=== PATIENT | male | born 1945 | race Caucasian/White ===

== ENCOUNTER 2019-11-07 09:00 | Outpatient (CLI) | payer MEDICARE, SELFPAY ==
[2019-11-07 10:06] LABS: Creatinine Urine 103.19 mg/dL (40-278)
[2019-11-07 10:08] LABS: Total Volume 24 Hour Urine 525 ml
[2019-11-07 10:09] LABS: Creatinine 24 Hour Urine 0.54 g/24 hr (0.95-2.49)
[2019-11-07 10:23] LABS: Alanine Aminotransferase 32 U/L (16-63); Albumin Level 3.5 g/dL (3.4-5.0); Alkaline Phosphatase 55 U/L (46-116); Anion Gap 12.3 mmol/L (7-16); Aspartate Amino Transferase 40 U/L (15-37); Bilirubin,Total 0.4 mg/dL (0.00-1.00); Blood Urea Nitrogen 30 mg/dL (7-18); Calcium 8.4 mg/dL (8.5-10.1); Carbon Dioxide 28 mmol/L (21-32); Chloride 103 mmol/L (98-108); Estimated Glomerular Filt Rate > 60; Glucose 96 mg/dL (70-99); Osmolality Calculated 294 mOsm/kg (285-295); Potassium 4.3 mmol/L (3.5-5.1); Sodium 139 mmol/L (136-145); Total Protein 6.3 g/dL (6.4-8.2)
[2019-11-10 05:58] LABS: Total Volume 525 mL; Urine Calcium 23.2 mg/dL
[2019-11-10 13:22] LABS: Parathyroid Intact 54 pg/mL (14-64)
[2019-11-11 09:23] LABS: Vitamin D 25 Hydroxy 42 ng/mL (30-100)
== END 2019-11-07 09:01 | disposition home or self-care (01) ==
PROVIDERS: Visit Provider Internal Medicine Endocrinology, Diabetes & Metabolism
DX: M81.8 Other osteoporosis without current pathological fracture (principal)
CPT/HCPCS: 36415; 80053; 81050; 82306; 82340; 82570; 83970

== ENCOUNTER 2020-02-06 08:55 | Outpatient (CLI) | payer MEDICARE, SELFPAY ==
[2020-02-06 10:06] LABS: Alanine Aminotransferase 38 U/L (16-63); Albumin Level 3.5 g/dL (3.4-5.0); Alkaline Phosphatase 49 U/L (46-116); Anion Gap 9 mmol/L (8-16); Aspartate Amino Transferase 30 U/L (15-37); Bilirubin,Total 0.4 mg/dL (0.00-1.00); Blood Urea Nitrogen 37 mg/dL (7-18); Calcium 8.5 mg/dL (8.5-10.1); Carbon Dioxide 27 mmol/L (21-32); Chloride 106 mmol/L (98-108); Estimated Glomerular Filt Rate > 60; Glucose 94 mg/dL (70-99); Osmolality Calculated 302 mOsm/kg (285-295); Potassium 4.1 mmol/L (3.5-5.1); Sodium 142 mmol/L (136-145); Total Protein 6.3 g/dL (6.4-8.2)
== END 2020-02-06 08:56 | disposition home or self-care (01) ==
LOC: CHSLAB 08:57
PROVIDERS: Visit Provider Internal Medicine Endocrinology, Diabetes & Metabolism
DX: M81.0 Age-related osteoporosis without current pathological fracture (principal)
CPT/HCPCS: 36415; 80053

== ENCOUNTER 2020-08-16 08:58 | Outpatient (CLI) | payer MEDICARE, SELFPAY ==
[2020-08-16 10:09] LABS: Alanine Aminotransferase 54 U/L (16-63); Albumin Level 3.4 g/dL (3.4-5.0); Alkaline Phosphatase 56 U/L (46-116); Anion Gap 6 mmol/L (8-16); Aspartate Amino Transferase 44 U/L (15-37); Bilirubin,Total 0.7 mg/dL (0.00-1.00); Blood Urea Nitrogen 37 mg/dL (7-18); Carbon Dioxide 30 mmol/L (21-32); Chloride 104 mmol/L (98-108); Estimated Glomerular Filt Rate > 60; Glucose 93 mg/dL (70-99); Osmolality Calculated 298 mOsm/kg (285-295); Potassium 4.3 mmol/L (3.5-5.1); Sodium 140 mmol/L (136-145)
[2020-08-16 10:14] LABS: Calcium 8.7 mg/dL (8.5-10.1)
[2020-08-16 11:15] LABS: Cholesterol 198 mg/dL (0-200); Free T4 Free Thyroxine 1.12 ng/dL (0.76-1.46); HDL Direct 111 mg/dL (40-60); LDL Cholesterol Calculated 80 mg/dL (<130); Phosphorus 3.5 mg/dL (2.6-4.7); Thyroid Stimulating Hormone 0.58 uIU/mL (0.36-3.74); Triglycerides 33 mg/dL (0-150)
[2020-08-19 04:13] LABS: Vitamin D 25 Hydroxy 41 ng/mL (30-100)
[2020-08-19 12:04] LABS: Parathyroid Intact 56 pg/mL (14-64)
== END 2020-08-16 08:59 | disposition home or self-care (01) ==
LOC: CHSLAB 09:03
PROVIDERS: Visit Provider Internal Medicine Endocrinology, Diabetes & Metabolism
DX: M81.0 Age-related osteoporosis without current pathological fracture (principal); Z13.6 Encounter for screening for cardiovascular disorders
CPT/HCPCS: 36415; 80053; 80061; 82306; 83970; 84100; 84439; 84443

== ENCOUNTER 2020-10-09 10:47 | Outpatient (CLI) | payer MEDICARE, BC, SELFPAY ==
--- NOTE | ~2020-10-09 | DEXA_ITS ---
Bone Density Report Name: Trip Braswell Age: 74 Sex: Male Ethnicity: White Date of : 1945 Indication: screening for osteoporosis; parental hip fracture; height loss; prior fracture; cancer; Referring Provider: Lloyd, Stephany Ramos Study: Bone densitometry was performed. Exam Date: October 09, 2020 Accession number: [id number] Bone Density: Region BMD T-score Z-score Classification AP Spine(L1, L2, L3) 0.688 -3.5 -2.4 Osteoporosis Femoral Neck (Left) 0.474 -3.4 -2.0 Osteoporosis Total Hip (Left) 0.589 -2.9 -2.0 Osteoporosis Femoral Neck (Right) 0.566 -2.7 -1.3 Osteoporosis Total Hip (Right) 0.647 -2.6 -1.7 Osteoporosis Femoral Neck Mean 0.520 -3.0 -1.6 Osteoporosis Total Hip Mean 0.618 -2.7 -1.9 Osteoporosis World Health Organization criteria for BMD impression classify patients as: Normal (T-score at or above -1.0), Osteopenia (T-score between -1.0 and -2.5), or Osteoporosis (T-score at or below -2.5). 10-year Fracture Risk: FRAX not reported because: Some T-score for Spine Total or Hip Total or Femoral Neck at or below -2.5 Treated for osteoporosis Clinical Information Provided by Patient: Has had a low trauma fracture Parent has had a hip fracture Is being treated for osteoporosis Has used the following medications: Prolia (i.e. denosumab), Vitamin D, Calcium Has the following medical conditions: Cancer Patient maximum height was 72 No regular weight bearing exercise Drinks caffeinated beverages Impression: The patient has established osteoporosis, based on the Total Spine T-score and the existence of a prior fracture. The patient has risk factors, including: parental hip fracture, previous fracture. Discussion: It is important to ask patients whether they are taking their medications and to encourage continued and appropriate compliance with their osteoporosis therapies to reduce fracture risk. It is also important to review their risk factors and encourage appropriate calcium and vitamin D intakes, exercise, fall prevention and other lifestyle measures. Follow-Up: Consider repeating this study in 2 years to reassess this patient's status, or sooner if there is some new clinical indication. Reported by: Dr. Amos Jimenez on 10/09/2020 11:50:00 AM. Reviewed, dictated and finalized at location [facility]
[2020-10-09 11:57] LABS: Alanine Aminotransferase 48 U/L (16-63); Albumin Level 3.2 g/dL (3.4-5.0); Alkaline Phosphatase 57 U/L (46-116); Anion Gap 9 mmol/L (8-16); Aspartate Amino Transferase 37 U/L (15-37); Bilirubin,Total 0.4 mg/dL (0.00-1.00); Blood Urea Nitrogen 40 mg/dL (7-18); Calcium 8.4 mg/dL (8.5-10.1); Carbon Dioxide 29 mmol/L (21-32); Chloride 104 mmol/L (98-108); Estimated Glomerular Filt Rate > 60; Glucose 94 mg/dL (70-99); Osmolality Calculated 303 mOsm/kg (285-295); Potassium 4.3 mmol/L (3.5-5.1); Sodium 142 mmol/L (136-145); Total Protein 6.3 g/dL (6.4-8.2)
[2020-10-09 12:05] LABS: Erythrocyte Sedimentation Rate 20 mm/hr (0-20)
[2020-10-11 13:44] LABS: Vitamin D 25 Hydroxy 40 ng/mL (30-100)
[2020-10-12 04:18] LABS: Albumin 3.5 g/dL (3.8-4.8); Alpha 1 Globulin 0.3 g/dL (0.2-0.3); Alpha 2 Globulin 0.6 g/dL (0.5-0.9); Beta 1 Globulin 0.5 g/dL (0.4-0.6); Gamma Globulin 0.9 g/dL (0.8-1.7)
== END 2020-10-09 10:48 | disposition home or self-care (01) ==
PROVIDERS: Visit Provider Internal Medicine Endocrinology, Diabetes & Metabolism
DX: M81.0 Age-related osteoporosis without current pathological fracture (principal); E88.09 Other disorders of plasma-protein metabolism, not elsewhere classified
CPT/HCPCS: 36415; 77080; 80053; 82306; 84155; 84165; 85652

== ENCOUNTER 2020-10-10 10:59 | Outpatient (NON) | payer MEDICARE, SELFPAY ==
[2020-10-10 11:11] LABS: Add Urine Microscopic? YES; Appearance Urine Clear (Clear); Bilirubin Urine Negative (Negative); Blood Urine Negative (Negative); Color Urine Yellow (Yellow); Glucose Urine UA Negative (Negative); Ketones Urine Negative (Negative); Leukocyte Esterase Ur Negative (Negative); Nitrate Urine Negative (Negative); Protein Urine Trace (Negative); Specific Grav Ur 1.025 (1.010-1.020); Urobilinogen Urine 0.2 mg/dL (0.2-1.0)
[2020-10-10 11:16] LABS: Bacteria Urine Trace /hpf; RBC Urine None seen /hpf (0-2); Squamous Epithelial Cell Urine Rare /hpf (Few); WBC Urine None seen /hpf (0-3)
== END 2020-10-10 11:00 | disposition home or self-care (01) ==
LOC: CHSLAB 11:02
PROVIDERS: Visit Provider Internal Medicine Endocrinology, Diabetes & Metabolism
DX: M81.0 Age-related osteoporosis without current pathological fracture (principal); E88.09 Other disorders of plasma-protein metabolism, not elsewhere classified
CPT/HCPCS: 81001

== ENCOUNTER 2021-06-29 11:38 | Inpatient (IN) | payer MEDICARE, OTHER, SELFPAY ==
[2021-06-29] VITALS (9 sets, daily range): BP systolic 109–150; BP diastolic 54–74; PULSE 74–88; RESP 14–18; TEMP 35.9–37; O2SAT 96–100; BMI 22.1
--- NOTE | 2021-06-29 12:06 | ED.GENADULT ---
HPI - General Adult General Chief complaint: Wound/Laceration Stated complaint: poss leg infection Time Seen by Provider: 06/29/21 11:51 Source: patient, family and RN notes reviewed History of Present Illness HPI narrative: 75-year-old male presented emerged department for evaluation of worsening leg wounds. Patient is a quadriplegic and lives at home and does primarily take care of himself. Patient does have a brother who lives nearby and does assist in his care. Family states they first noticed the leg wounds around [place] and they state that they saw the leg wounds today and saw that they have continued to worsen. Family is requesting that the patient be evaluated for placement into a group home facility for physical and occupational therapy. Patient also does report having bedsores on bilateral buttocks. Patient is a quadriplegic since 1969. Patient states he has decreased mobility recently. Patient denies any falls or injuries. Patient denies any chest pain or shortness breath. Patient denies any fevers. Patient denies any nausea vomiting or diarrhea. Related Data Allergies Allergy/AdvReac Type Severity Reaction Status Date / Time No Known Allergies Allergy Unverified 01/07/21 09:13 Review of Systems Review of Systems: CONSTITUTIONAL: Denies fever, chills, or sweats. EYES: Denies visual changes, redness, or discharge. ENT: Denies rhinorrhea, congestion, sore throat, or otalgia. CARDIOVASCULAR: Denies chest pain, palpitations, or edema. RESPIRATORY: Denies cough or dyspnea. GASTROINTESTINAL: Denies abdominal pain, nausea, vomiting, or diarrhea. GENITOURINARY: Denies dysuria or hematuria. SKIN: Worsening lower extremity erythema and drainage from wounds. MUSCULOSKELETAL: Denies back pain, joint pain, or myalgia. NEUROLOGIC: Denies headache, numbness, or weakness. PSYCHIATRIC: Denies anxiety or depression. Exam Narrative: APPEARANCE: Well appearing, no pain, no distress, well-nourished. HEAD: normocephalic, atraumatic. EYES: PERRLA/EOMI, conjunctivae clear. NOSE: Normal no drainage RESPIRATORY: Airway patent, respirations nonlabored. Clear to auscultation bilaterally, no rales, rhonchi, wheezing. CARDIOVASCULAR: Regular rate and rhythm without murmurs rubs or gallops. ABDOMINAL: Soft, nontender, nondistended, normal bowel sounds MUSCULOSKELETAL: Moves all extremities. Contractions of lower extremities. NEURO: Alert. Cranial nerves II through XII intact. SKIN: Bilateral lower extremity edema and erythema. Patient does have chronically seeping wounds on the right lower extremity with crusting. Course Course Emergency Course: Family feels that the patient is unable to be cared for at home. Patient was started on antibiotics for his lower extremity cellulitis for the antibiotic guidelines. Patient and family were updated on the results of the work-up and plan for admission. All questions concerns were addressed. Case was discussed with the hospitalist and patient was accepted for admission with the anticipated disposition being discharged to skilled nursing. Patient was stable at time of admission. Vital Signs Vital signs: Vital Signs Temperature 97.5 F L 06/29/21 11:46 Pulse Rate 74 06/29/21 11:46 Respiratory Rate 14 06/29/21 11:46 Blood Pressure 119/62 06/29/21 11:46 Pulse Oximetry 100 06/29/21 11:46 Temperature 97.5 F L 06/29/21 11:46 Pulse Rate 74 06/29/21 11:46 Respiratory Rate 14 06/29/21 11:46 Blood Pressure 109/70 06/29/21 14:01 Pulse Oximetry 98 06/29/21 14:01 Medical Decision Making Vital Signs Vital Signs: Vital Signs Temperature 97.5 F L 06/29/21 11:46 Pulse Rate 74 06/29/21 11:46 Respiratory Rate 14 06/29/21 11:46 Blood Pressure 119/62 06/29/21 11:46 Pulse Oximetry 100 06/29/21 11:46 Temperature 97.5 F L 06/29/21 11:46 Pulse Rate 74 06/29/21 11:46 Respiratory Rate 14 06/29/21 11:46 Blood Pressure 109/70 06/29/21 14:01 Pulse
[2021-06-29 12:37] LABS: Basophils Absolute Auto 0.1 K/mm3 (0.0-0.1); Basophils Percent Auto 0.9 % (0.2-1.2); Eosinophils Absolute Auto 0.1 K/mm3 (0-0.3); Eosinophils Percent Auto 1.1 % (0-4.4); Hematocrit 36.4 % (42.0-52.0); Hemoglobin 11.8 g/dL (14.0-18.0); Immature Granulocyte Absolute 0.02 K/mm3 (0.00-0.031); Immature Granulocyte Percent A 0.4 % (0-0.5); Lymphocytes Absolute Auto 0.83 K/mm3 (0.9-3.2); Lymphocytes Percent Auto 15.3 % (18.3-44.2); Mean Corpuscular HGB Conc 32.4 g/dl (32-36); Mean Corpuscular Hemoglobin 32.5 pg (26-34); Mean Corpuscular Volume 100.3 fl (80-100); Mean Platelet Volume 8.5 fl (7.4-10.4); Monocytes Absolute Auto 0.9 K/mm3 (0.1-0.6); Monocytes Percent Auto 17.3 % (2.6-8.5); Neutrophils Absolute Auto 3.5 K/mm3 (1.3-6.7); Platelet Count Result 236 k/mm3 (150-375); Red Blood Count 3.63 M/mm3 (4.6-6.20); Red Cell Distribution Width 12.9 % (11.5-14.5); White Blood Count 5.4 K/mm3 (4.5-10.0)
[2021-06-29 12:46] LABS: Lactic Acid Reflex 0.8 mmol/L (0.7-2.1)
[2021-06-29 12:48] LABS: Alanine Aminotransferase 39 U/L (4-50); Albumin Level 3.2 g/dL (3.5-5.1); Alkaline Phosphatase 78 U/L (38-126); Anion Gap 4 mmol/L (8-16); Aspartate Amino Transferase 49 U/L (17-59); Bilirubin,Total 0.3 mg/dL (0.2-1.3); Blood Urea Nitrogen 35 mg/dL (9-20); Calcium 8.1 mg/dL (8.4-10.2); Carbon Dioxide 26 mmol/L (22-30); Chloride 108 mmol/L (98-107); Estimated CRCL calculation 82 ml/min; Estimated Glomerular Filt Rate > 60; Glucose 129 mg/dL (65-110); Potassium 4.3 mmol/L (3.4-5.0); Sodium 138 mmol/L (137-145)
--- NOTE | 2021-06-29 14:02 | PC.NURSE ---
Addendum entered by Leonora Dumont RN 06/29/21 14:02: RADHA Saucedo RN repositioned patient off of his left hip, onto his right hip for comfort. Original Note: Writer and Wade RN repositioned patient off of his left hip, onto his right hip for comfort.
--- NOTE | 2021-06-29 14:42 | PCPTNOTE ---
Will complete therapy assessment on pt once admitted to a room.
[2021-06-29 15:02] LABS: Add Urine Microscopic? YES; Appearance Urine Clear (Clear); Bilirubin Urine Negative (Negative); Blood Urine Negative (Negative); Color Urine Yellow (Yellow); Glucose Urine UA Negative (Negative); Ketones Urine Negative (Negative); Leukocyte Esterase Ur Negative LEU/UL (Negative); Nitrate Urine Negative (Negative); Protein Urine Negative (Negative); RBC Urine 0-2 /hpf (0-2); Specific Grav Ur 1.025 (1.001-1.035); Urobilinogen Urine Negative mg/dL (<2.0); WBC Urine 0-3 /hpf
--- NOTE | 2021-06-29 16:14 | PM.IMHP ---
H&P: HPI History of Present Illness Date/Time: Patient was placed observation status for expected length of stay less than 23 hours for management, will plan to re-evaluate tomorrow for improvement. 06/29/21 16:14 Chief Complaint: Leg wounds Narrative: Mr. Braswell 75-year-old gentleman who presented to the emergency room with complaints of increasing leg wounds. Patient has a known history of quadriplegia since 1969 and osteoporosis. Patient states he takes no medications at home except for calcium. Patient states over the last 2-3 months he has had increasing wounds to bilateral lower extremities with his right leg being worse than his left. Patient states that his sister had noted that his legs has started weeping and she made him come to the hospital for further evaluation. Patient states that he has also had some breakdown to his coccyx area and in between his buttocks. Patient states that his legs do not hurt at all, but if he does not put a barrier cream on his buttocks that this does her. Patient denies any fever chills at home. Patient denies any nausea, vomiting, constipation, or diarrhea. Patient states that he does have urgency and sometimes incontinence of urine. Patient denies any dysuria, hematuria, or frequency Upon evaluation in emergency room patient was noted to have increasing erythema to left lower extremity and right lower extremity had erythema with multiple scabbed areas with the greatest being the mid hernandez and a half dollar in size. Review of Systems Review of Systems: A 12 point review of systems was completed patient all pertinent positive and negative per HPI the remainder are unremarkable. [facility] Past Medical History Medical History (Updated 06/29/21 @ 16:29 by Gela Braxton APRN) Osteoporosis Quadriplegia Surgical History Surgical History (Updated 06/29/21 @ 16:25 by Gela Braxton APRN) History of hernia repair Status post gastric surgery Social History Social History (Updated 06/29/21 @ 16:27 by Gela Braxton APRN) Smoking status: Never smoker Alcohol intake: current Drinks per week: 7 Alcohol use details: Patient drinks 1 glass of red wine nightly Substance use: never Meds Home Medications and Allergies Allergies Allergy/AdvReac Type Severity Reaction Status Date / Time No Known Allergies Allergy Unverified 01/07/21 09:13 Vital Signs Vital Signs - 24 hr 06/29/21 11:46 06/29/21 12:01 06/29/21 12:30 Temperature 36.4 C L Pulse Rate 74 Respiratory Rate 14 Blood Pressure 119/62 127/67 Pulse Oximetry 100 100 99 06/29/21 13:58 06/29/21 14:01 Temperature Pulse Rate Respiratory Rate Blood Pressure 109/62 109/70 Pulse Oximetry 98 98 Exam Narrative: Constitutional: Patient is a 75-year-old thin frail looking gentleman who is in no acute distress. Patient is alert oriented x3 HEENT: Moist mucous membranes. No scleral icterus. No lymphadenopathy. Neck: No carotid bruits noted no JVD noted Lungs: Lung sounds are clear to auscultation bilaterally. No accessory muscle use. No rhonchi, rales, or wheezes noted. Cardiovascular: Apical pulse is regular rate and rhythm. S1-S2 noted, no S3 or S4 noted. Patient has 2/6 systolic murmur noted. Abdomen: Soft, round, and nontender. No palpable masses. Extremities: Patient has erythema to bilateral lower extremities. Patient has multiple wounds to right lower extremity with the biggest being on mid hernandez and a half dollar size. This wound is scabbed over. Skin: Patient has excoriation noted to buttocks. Neurological: No focal neurological deficits. Cranial nerves II-XII grossly intact. Psychiatric: Cooperative, appropriate mood, and affect H&P: Results Labs Labs: Short CBC 06/29/21 Range/Units 12:25 WBC 5.4 (4.5-10.0) K/mm3 Hgb 11.8 L (14.0-18.0) g/dL Hct 36.4 L (42.0-52.0) % Plt Count 236 (150-375) k/mm3 [facility] 06/29/21 12:25 Sodium 138 P
[2021-06-29 17:18] LABS: SARS-CoV-2 RNA PCR Negative
[2021-06-30 05:57] VITALS: BP 96/46; PULSE 74; RESP 18; TEMP 36.7; O2SAT 100
[2021-06-30 08:00] VITALS: PULSE 104; RESP 18; O2SAT 99
[2021-06-30] MEDS: ENOXAPARIN 40 MG/0.4 ML SYRINGE SUB-Q (09:43)
--- NOTE | 2021-06-30 10:33 | PM.IMPN ---
Progress Note: A&P Assessment and Plan (1) Cellulitis: Qualifiers: Laterality: unspecified laterality Site of cellulitis: extremity Site of cellulitis of extremity: lower extremity Qualified Code(s): L03.119 - Cellulitis of unspecified part of limb Code(s): L03.90 - Cellulitis, unspecified Status: Acute Assessment and Plan: - Will have Wound Care to evaluate and treat patient due appreciate any further recommendations. Patient has been placed on Ancef q.8 hours for cellulitis. - Labs and VS on admission were stable. We will continue to monitor both. (2) Adult failure to thrive: Code(s): R62.7 - Adult failure to thrive Status: Acute Assessment and Plan: - Will have dietitian to evaluate treat patient due appreciate all further recommendations. - Recommend calorie supplementation to each mealtray. (3) Quadriplegia: Code(s): G82.50 - Quadriplegia, unspecified Status: Inactive Assessment and Plan: - Will have PT/OT to evaluate and treat patient to assess for safety and appropriateness for pt. to return home alone as he states he lives independently and plans on returning there. Time Spent With Patient Time with patient: 15 - 25 minutes Subjective Date/time seen: 06/30/21 0730 This pt. was examined at the bedside today in interval exam. He reports no pain, but does admit to feeling weak. He was admitted yesterday for cellulitis of the BLE and has a significant histor of being a Quadriplegic from spinal cord injury. He reportedly lives at home alone and manages in his wheelchair. His family wanted him to come to the ER for further evaluation of his Cellulitis. He has been started on Ancef Q8 hours here. PT is going to come and evaluate patient for safety and appropriateness to return home. The pt. states, however, that he will be going home at discharge. He has no CP, Dyspnea, N/V/D. Review of Systems Review of Systems: A 12 point review of systems was performed and is otherwise negative with exception of what is in HPI. All systems reviewed & are unremarkable except as noted in HPI and below Exam Narrative: Constitutional: Patient is a 75-year-old thin frail looking gentleman who is in no acute distress. Patient is alert oriented x3 HEENT: Moist mucous membranes. No scleral icterus. No lymphadenopathy. Neck: No carotid bruits noted no JVD noted Lungs: Lung sounds are clear to auscultation bilaterally. No accessory muscle use. No rhonchi, rales, or wheezes noted. Cardiovascular: Apical pulse is regular rate and rhythm. S1-S2 noted, no S3 or S4 noted. Patient has 2/6 systolic murmur noted. Abdomen: Soft, round, and nontender. No palpable masses. Extremities: Patient has erythema to bilateral lower extremities. Patient has multiple wounds to right lower extremity with the biggest being on mid hernandez and a half dollar size. This wound is scabbed over. Skin: Patient has excoriation noted to buttocks. Neurological: No focal neurological deficits. Cranial nerves II-XII grossly intact. Psychiatric: Cooperative, appropriate mood, and affect Objective Data Vital Signs Vital Signs: Vital Signs - 24 hr 06/29/21 11:46 06/29/21 12:01 06/29/21 12:30 Temperature 97.5 F L Pulse Rate 74 Respiratory Rate 14 Blood Pressure 119/62 127/67 Pulse Oximetry 100 100 99 06/29/21 13:58 06/29/21 14:01 06/29/21 14:31 Temperature Pulse Rate Respiratory Rate Blood Pressure 109/62 109/70 111/56 L Pulse Oximetry 98 98 100 06/29/21 15:31 06/29/21 19:33 06/29/21 20:00 Temperature 98.6 F 96.7 F L Pulse Rate 88 82 Respiratory Rate 18 18 Blood Pressure 113/54 L 118/65 150/74 H Pulse Oximetry 96 98 06/30/21 05:57 Temperature 98.0 F Pulse Rate 74 Respiratory Rate 18 Blood Pressure 96/46 L Pulse Oximetry 100 Intake/Output Intake/Output: Intake & Output 06/27/21 06/28/21 06/29/21 06/30/21 23:59 23:59 23:59 23:59 Intake Total 100 440
--- NOTE | 2021-06-30 12:40 | PCDIET ---
Pt screened in for pressure ulcer. Per Wound RN notes, pt is not positive for pressure ulcer. Current nutrition is a regular diet with reported intake of 90%. Dietary supplement started today (06/30/21) of Ensure Enlive TID w/meals to provide an additional 350kcal and 20g of protein to increase caloric intake and aid in wound healing. No nutritional interventions at this time. Agree with diet orders at this time. Will follow up in 7 days if pt has not been D/C.
[2021-06-30 14:00] VITALS: BP 133/56; PULSE 104; RESP 18; TEMP 36.4; O2SAT 99
[2021-06-30] MEDS: SILVERGEL (ELTA) 45 ML 1 APPLIC TOPICAL (15:43)
[2021-06-30 21:45] VITALS: BP 105/41; PULSE 94; RESP 16; TEMP 36.6; O2SAT 94
[2021-07-01 06:00] VITALS: BP 103/52; PULSE 75; RESP 18; TEMP 36.4; O2SAT 95
[2021-07-01] MEDS: SILVERGEL (ELTA) 45 ML 1 APPLIC TOPICAL (09:11)
[2021-07-01] MEDS: ENOXAPARIN 40 MG/0.4 ML SYRINGE SUB-Q (09:11)
--- NOTE | 2021-07-01 10:47 | PM.IMPN ---
Progress Note: A&P Assessment and Plan (1) Cellulitis: Qualifiers: Laterality: unspecified laterality Site of cellulitis: extremity Site of cellulitis of extremity: lower extremity Qualified Code(s): L03.119 - Cellulitis of unspecified part of limb Code(s): L03.90 - Cellulitis, unspecified Status: Acute Assessment and Plan: - Patient has been placed on Ancef q.8 hours for cellulitis. - Labs and VS on admission were stable. We will continue to monitor both. - Pt. is able to discharge tomorrow as long as his VSS and he has no new symptoms. On day two of admission Blood cultures preliminarily remain negative. - Pt. will require oral abx to discharge to the rehab facility. - Wound care consulted yesterday and advised on dressings of Silver gel and cover with gauze dressing daily to treat and protect the skin of the BLE. Will follow their recommendations. (2) Adult failure to thrive: Code(s): R62.7 - Adult failure to thrive Status: Acute Assessment and Plan: - [employer]ake[employer] Line Tender evaluated yesterday and agrees with my order for Ensure Enlive TID with meals for increased protein intake for wound healing. No additional orders or recommendations from them at this time. - Continue Ensure Enlive TID with each mealtray. (3) Quadriplegia: Code(s): G82.50 - Quadriplegia, unspecified Status: Inactive Assessment and Plan: - PT/OT assessed yesterday and it was determined that pt. would benefit from rehab. He is agreeable and wanted to go to [facility] as he had been there before. They have accepted and are awaiting his discharge, but pt. will need oral abx as opposed to IV on discharge. Time Spent With Patient Time with patient: 15 - 25 minutes Subjective Date/time seen: 07/01/21 2915 This pt. was examined at the bedside in interval assessment today. He has no new complaints and he has no new symptoms. He remains on Ancef Q8 hrs as his legs continue to appear red and warm to the touch. He was evaluated by PT yesterday and they are recommending rehab for him at discharge. Pt. is agreeable to this plan. He has been to the rehab facility before and says he will be happy to go there to become stronger. No CP today and NO dyspnea. Review of Systems Review of Systems: A 12 point ROS has been performed and is otherwise negative with exception of what is documented in HPI. All systems reviewed & are unremarkable except as noted in HPI and below Exam Narrative: Constitutional: Patient is a 75-year-old thin frail looking gentleman who is in no acute distress. Patient is alert oriented x3 HEENT: Moist mucous membranes. No scleral icterus. No lymphadenopathy. Neck: No carotid bruits noted no JVD noted Lungs: Lung sounds are clear to auscultation bilaterally. No accessory muscle use. No rhonchi, rales, or wheezes noted. Cardiovascular: Apical pulse is regular rate and rhythm. S1-S2 noted, no S3 or S4 noted. Patient has 2/6 systolic murmur noted. Abdomen: Soft, round, and nontender. No palpable masses. Extremities: Patient has erythema to bilateral lower extremities. Patient has multiple wounds to right lower extremity with the biggest being on mid hernandez and a half dollar size. This wound is scabbed over. Skin: Patient has excoriation noted to buttocks. Neurological: No focal neurological deficits. Cranial nerves II-XII grossly intact. Psychiatric: Cooperative, appropriate mood, and affect Objective Data Vital Signs Vital Signs: Vital Signs - 24 hr 06/30/21 14:00 06/30/21 21:45 07/01/21 06:00 Temperature 97.6 F 97.8 F 97.6 F Pulse Rate 104 H 94 75 Respiratory Rate 18 16 18 Blood Pressure 133/56 L 105/41 L 103/52 L Pulse Oximetry 99 94 95 Intake/Output Intake/Output: Intake & Output 06/28/21 06/29/21 06/30/21 07/01/21 23:59 23:59 23:59 23:59 Intake Total 100 1070 460 Output Total 200 Balance 100 870 460 Meds/Results Medications: Active Medications Gene
[2021-07-01 15:10] VITALS: BP 115/62; PULSE 81; RESP 18; TEMP 36.8; O2SAT 95
[2021-07-01 20:48] VITALS: O2SAT 96
[2021-07-01 22:00] VITALS: BP 113/61; PULSE 74; RESP 18; TEMP 36.5; O2SAT 95
[2021-07-02 06:00] VITALS: BP 149/73; PULSE 76; RESP 16; TEMP 36.4; O2SAT 99
[2021-07-02 08:00] VITALS: BP 117/68; PULSE 72; RESP 18; TEMP 36.8; O2SAT 97
[2021-07-02 08:00] LABS: Hemoglobin 10.8 g/dL (14.0-18.0); Mean Corpuscular HGB Conc 33.8 g/dl (32-36); Mean Corpuscular Hemoglobin 32.6 pg (26-34); Mean Corpuscular Volume 96.7 fl (80-100); Mean Platelet Volume 8.8 fl (7.4-10.4); Platelet Count Result 205 k/mm3 (150-375); Red Blood Count 3.31 M/mm3 (4.6-6.20); Red Cell Distribution Width 12.6 % (11.5-14.5); White Blood Count 5.2 K/mm3 (4.5-10.0)
[2021-07-02 08:10] LABS: Anion Gap -1 mmol/L (8-16); Blood Urea Nitrogen 17 mg/dL (9-20); Calcium 7.7 mg/dL (8.4-10.2); Carbon Dioxide 31 mmol/L (22-30); Chloride 104 mmol/L (98-107); Estimated CRCL calculation 79 ml/min; Estimated Glomerular Filt Rate > 60; Glucose 95 mg/dL (65-110); Potassium 4.4 mmol/L (3.4-5.0); Sodium 134 mmol/L (137-145)
[2021-07-02] MEDS: ENOXAPARIN 40 MG/0.4 ML SYRINGE SUB-Q (09:36)
[2021-07-02] MEDS: SILVERGEL (ELTA) 45 ML 1 APPLIC TOPICAL (09:37)
--- NOTE | 2021-07-02 11:28 | PM.DS ---
DS: Admitting Diagnosis Discharge Date 07/02/2021 Admitting Diagnosis Cellulitis DS: Discharge Diagnosis Discharge Diagnosis (1) Venous stasis ulcer: Code(s): I83.009 - Varicose veins of unspecified lower extremity with ulcer of unspecified site; L97.909 - Non-pressure chronic ulcer of unspecified part of unspecified lower leg with unspecified severity Status: Acute Assessment and Plan: Patient presented with weeping leg wounds -reports chronic wounds of the bilateral lower extremities -wounds consistent with venous stasis ulcer -evaluated by census enumerator -continue with silver gel application with daily dressing changes (2) Cellulitis: Qualifiers: Laterality: unspecified laterality Site of cellulitis: extremity Site of cellulitis of extremity: lower extremity Qualified Code(s): L03.119 - Cellulitis of unspecified part of limb Code(s): L03.90 - Cellulitis, unspecified Status: Acute Assessment and Plan: Presented with leg wounds, on initial evaluation felt to have surrounding cellulitis -started on IV Ancef and had overall improvement on my initial exam -will continue p.o. Keflex to complete 7 days of antibiotic therapy -patient remained afebrile, no leukocytosis, vital signs remained stable -preliminary blood cultures negative, final wound cultures will be monitored (3) Adult failure to thrive: Code(s): R62.7 - Adult failure to thrive Status: Acute Assessment and Plan: Patient appeared malnourished with poor p.o. intake -evaluated by dietitian during hospitalization -recommended Ensure enlive TID for increased protein intake for wound healing -continue with dietary supplement at SNF (4) Quadriplegia: Code(s): G82.50 - Quadriplegia, unspecified Status: Inactive Assessment and Plan: Patient is wheelchair-bound. He reports he does live alone and is typically independent with his daily activities -evaluated by PT/OT during hospitalization -determined that patient would benefit from rehab -continue therapy at SNF. Accepted to [facility] DS: Summary Hospital Course Hospital Course: Date of admission: 06/29/2021 Date of discharge: 07/02/2021 Trip Braswell is a 75-year-old male with a history of osteoporosis and quadriplegia who presented to the emergency department on 06/29/2021 with complaints leg wounds ongoing for months that had begun weeping and therefore he sought medical evaluation. He was found to have venous stasis ulcers with surrounding cellulitis. He was admitted to the hospitalist service for further evaluation and management. He had improvement with antibiotics. Wound care was provided. He was weak and following his PT/OT evals it was determined that he would benefit from continued therapy at SNF. This was arranged at [facility] for care coordination. Following approval placement, the patient was determined to no longer require inpatient care and was discharged in hemodynamically stable condition on 07/02/2021. He felt comfortable with plans for discharge to [facility]. Status at Discharge Overall status at discharge: patient is progressing back to baseline Time Spent with Patient Time attestation: Total time spent providing and/or coordinating discharge services: 40 minutes Time spent: Greater than 30 minutes Exam Narrative: General: Thin, chronically ill-appearing 75 year-old male, lying supine in bed with legs drawn to chest, comfortable, NARD Neuro: awake, alert and answering questions appropriately, speech clear, no focal neuro deficits noted HEENMT: normocephalic, atraumatic, EOMI, sclerae anicteric Respiratory: clear to auscultation bilaterally, nonlabored breathing Cardio: regular rate, regular rhythm with S1-S2 Abdomen: nondistended, normoactive bowel sounds, soft, nontender to palpation Extremities: no edema or erythema, anterior calves slightly tender to palpation Skin: Bila
[2021-07-02 12:04] LABS: EDCOVIDSCREEN Negative (Negative)
--- NOTE | 2021-07-02 12:44 | PC.NURSE ---
On 07/02/21, the student, Francesca Rock, provided care and completed [facility] documentation on this patient. I have reviewed the student's documentation and agree with the findings.
[2021-07-02 13:53] VITALS: BP 133/82; PULSE 75; RESP 16; TEMP 36.7; O2SAT 98
--- NOTE | 2021-07-02 13:55 | PC.NURSE ---
On 07/02/21, the student, Francesca Rock, provided care and completed [facility] documentation on this patient. I have reviewed the student's documentation and agree with the findings.
== END 2021-07-02 14:10 | DRG 602 ==
LOC: ANHED 15:38 → ANH3MEDSUR 18:47
PROVIDERS: Admitting Provider Chiropractor; Emergency Provider Emergency Medicine; Visit Provider Physician Assistant
DX: L03.119 Cellulitis of unspecified part of limb (principal); G82.50 Quadriplegia, unspecified; E46 Unspecified protein-calorie malnutrition; I83.218 Varicose veins of right lower extremity with both ulcer of other part of lower extremity and inflammation; I83.228 Varicose veins of left lower extremity with both ulcer of other part of lower extremity and inflammation; L97.819 Non-pressure chronic ulcer of other part of right lower leg with unspecified severity; L97.829 Non-pressure chronic ulcer of other part of left lower leg with unspecified severity; R62.7 Adult failure to thrive; Z20.822 Contact with and (suspected) exposure to COVID-19; M81.0 Age-related osteoporosis without current pathological fracture; Z79.899 Other long term (current) drug therapy
CPT/HCPCS: 36415; 80048; 80053; 81001; 83605; 85025; 85027; 87040; 87426; 96365; 96366; 96372; 97161; 97166; 97535; 99285; A9270; C9803; G0378; J0690; J1650; U0003; U0005

== ENCOUNTER 2021-10-31 07:51 | Outpatient (CLI) | payer MEDICARE, SELFPAY ==
[2021-10-31 08:40] LABS: Free T4 Free Thyroxine 1.03 ng/dL (0.76-1.46); Thyroid Stimulating Hormone 1.07 uIU/mL (0.36-3.74)
[2021-11-03 15:07] LABS: Parathyroid Intact 50 pg/mL (14-64)
== END 2021-10-31 07:52 | disposition home or self-care (01) ==
LOC: CHSLAB 07:57
PROVIDERS: PCP Internal Medicine Endocrinology, Diabetes & Metabolism; Visit Provider Internal Medicine Endocrinology, Diabetes & Metabolism
DX: M81.0 Age-related osteoporosis without current pathological fracture (principal); E03.9 Hypothyroidism, unspecified
CPT/HCPCS: 36415; 83970; 84439; 84443

== ENCOUNTER 2024-03-11 15:22 | Emergency (ER) | payer MEDICARE, SELFPAY ==
--- NOTE | ~2024-03-11 | CT_ITS ---
EXAMINATION: CT brain wo con DATE: 03/11/2024 17:13 INDICATION: head injury . TECHNIQUE: Computed tomography (CT) of the head was performed without intravenous contrast. The mA wa s adjusted according to patient size. Iterative reconstruction technique was employed. The dose-lengt h product was 681.00 mGy-cm. COMPARISON: 10/08/2014. FINDINGS: No acute intracranial hemorrhage or extra-axial fluid collection. Moderate dilation of ventricles, increased since prior study, with periventricular white matter hypod ensity. No mass or or herniation. No acute ischemic infarct. Unremarkable dural venous sinus attenuation. No acute osseous abnormality. The aerated spaces are clear. Atherosclerotic intracranial calcification. Intraocular silicone in the left globe. Right lens replac ement. IMPRESSION: No acute large vessel infarct or intracranial hemorrhage. Moderate ventricular enlargement, increased since the prior exam, may represent interval progression of atrophy, noting that normal pressure hydrocephalus could appear similarly. Reviewed, dictated and finalized at location [facility] IMPRESSION: No acute large vessel infarct or intracranial hemorrhage. Moderate ventricular enlargement, increased since the prior exam, may represent interval progression of atrophy, noting that normal pressure hydrocephalus cou ld appear similarly.
[2024-03-11 15:21] VITALS: BP 151/98; PULSE 65; RESP 15; TEMP 36.4; O2SAT 98
--- NOTE | 2024-03-11 15:53 | ED_ITS ---
HPI - General Adult General Chief complaint: Fall Stated complaint: fall from wheelchair History of Present Illness HPI narrative: 78-year-old male present to the emergency department for evaluation after having a ground level fall. Patient states when he sits down he often flopped d own. Patient states he flopped into the chair today and it tipped over backwards and he struck his head on a plastic garbage can. Patient denies any pain. Patient is a quadriplegic since the Related Data Home Medications Medication Instructions Recorded Confirmed Citracal 600 mg BYMOUTH DAILY 06/29/21 06/29/21 denosumab 60 mg/mL subcutaneous 60 mg subcut [id number] 06/29/21 06/29/21 syringe (Prolia) Allergies Allergy/AdvReac Type Severity Reaction Status Date / Time No Known Allergies Allergy Unverified 01/07/21 09:13 Review of Systems Review of Systems: All systems reviewed & are unremarkable except as noted in HPI and below PMFSH Past Medical History Medical History (Updated 03/11/24 @ 17:31 by Nolberto Calix MD) Osteoporosis Quadriplegia Surgical History Surgical History (Updated 06/29/21 @ 16:25 by Gela Braxton APRN) History of hernia repair Status post gastric surgery Social History Social History (Updated 06/29/21 @ 16:27 by Gela Braxton APRN) Smoking status: Never smoker Second hand tobacco smoke exposure: No Alcohol intake: current Drinks per week: 7 Alcohol use details: Patient drinks 1 glass of red wine nightly Substance use: never Substance use type: does not use Spiritual care concerns: No Exam Narrative: APPEARANCE: Well appearing, no pain, no distress, well-nourished. HEAD: normocephalic, atraumatic. EYES: PERRLA/EOMI, conjunctivae clear. NOSE: Normal no drainage NECK: Supple. No adenopathy, no masses. RESPIRATORY: Airway patent, respirations nonlabored. Clear to auscultation bilaterally, no rales, rhonchi, wheezing. CARDIOVASCULAR: Regular rate and rhythm without murmurs rubs or gallops. ABDOMINAL: Soft, nontender, nondistended, normal bowel sounds MUSCULOSKELETAL: Moves all extremities. Strength/ROM intact, No edema, No calf tenderness. NEURO: Alert. Cranial nerves II through XII intact. grossly intact SKIN: Warm, dry. Normal Color Course Vital Signs Vital signs: Vital Signs Temperature 97.6 F 03/11/24 15:21 Pulse Rate 65 03/11/24 15:21 Respiratory Rate 15 03/11/24 15:21 Blood Pressure 151/98 H 03/11/24 15:21 Pulse Oximetry 98 03/11/24 15:21 Oxygen Delivery Room Air 03/11/24 15:21 Temperature 97.9 F 03/11/24 18:13 Pulse Rate 69 03/11/24 18:13 Respiratory Rate 15 03/11/24 18:13 Blood Pressure 132/82 03/11/24 18:13 Pulse Oximetry 99 03/11/24 18:13 Oxygen Delivery Room Air 03/11/24 15:21 Medical Decision Making MDM Narrative Medical decision making narrative: 78-year-old male presenting to the emergency department for evaluation for a head injury. Head CT was negative for acute intracranial abnormality. Patient denies any pain or complaint. Patient was discharged back to his care facility. Differential Diagnosis Differential Diagnosis: skull fracture, subarachnoid hemorrhage, subdural hematoma, scalp contusion Vital Signs Vital Signs: Vital Signs Temperature 97.6 F 03/11/24 15:21 Pulse Rate 65 03/11/24 15:21 Respiratory Rate 15 03/11/24 15:21 Blood Pressure 151/98 H 03/11/24 15:21 Pulse Oximetry 98 03/11/24 15:21 Oxygen Delivery Room Air 03/11/24 15:21 Temperature 97.9 F 03/11/24 18:13 Pulse Rate 69 03/11/24 18:13 Respiratory Rate 15 03/11/24 18:13 Blood Pressure 132/82 03/11/24 18:13 Pulse Oximetry 99 03/11/24 18:13 Oxygen Delivery Room Air 03/11/24 15:21 Imaging Data Radiologist's impression: Impressions Head CT 03/11/24 17:17 IMPRESSION: No acute large vessel infarct or intracranial hemorrhage. Moderate ventricular enlargement, increased since the prior exam, may represent interval progression of atrophy, noting that normal pressure hydrocephalus could appear similarly. Discharge Plan Discharge Clinical Impression: Head injury Patient Disposition: NH Residential/Asst Living Condition: Stable Instructions: Antibiotic Form, Head Injury (ED) Additional Instructions: have close follow-up with your primary care physician Prescriptions: No Action Prolia 60 mg/mL syringe 60 mg SUBCUT [id number] Citracal 600 mg BYMOUTH DAILY Silver-Sept 200 mcg/gram Gel 1 applic topical DAILY Qty: 45 0RF cephalexin 500 mg capsule 500 mg PO Q6H Qty: 16 0RF Follow-up/Referrals: Lloyd,Stephany Cardoza MD [Primary Care Provider] -
[2024-03-11 16:48] VITALS: BP 146/88; PULSE 68; RESP 15; O2SAT 99
[2024-03-11 18:13] VITALS: BP 132/82; PULSE 69; RESP 15; TEMP 36.6; O2SAT 99
== END 2024-03-11 19:22 ==
PROVIDERS: Emergency Provider Emergency Medicine; PCP Internal Medicine Endocrinology, Diabetes & Metabolism
DX: S09.90XA Unspecified injury of head, initial encounter (principal); G82.50 Quadriplegia, unspecified; M81.0 Age-related osteoporosis without current pathological fracture; W07.XXXA Fall from chair, initial encounter
CPT/HCPCS: 70450; 99284